=== PATIENT | female | born 1950 | race Two or more races ===

== ENCOUNTER → 2020-10-17 09:13 | Outpatient (CLI) | payer OTHER | END | disposition home or self-care (01) | LOC: LAB 09:13 | PROVIDERS: ATTEND Radiology Diagnostic Radiology | DX: N20.1 Calculus of ureter (principal); Z51.81 Encounter for therapeutic drug level monitoring ==

== ENCOUNTER 2020-10-17 09:54 | Outpatient (CLI) | payer OTHER | END 2020-10-17 10:08 | disposition home or self-care (01) | LOC: TOM 09:54 | PROVIDERS: ATTEND Urology | DX: N20.1 Calculus of ureter (principal) ==

== ENCOUNTER 2024-07-04 13:01 | Emergency (ER) | payer OTHER ==
[~2024-07-04] VITALS: Ht 149.9 cm; Wt 54.4 kg
[2024-07-04] MEDS ORDERED: CALCIUM500 M2 (13:18)
[2024-07-04] MEDS ORDERED: SIMVASTATIN5 MG (13:18)
[2024-07-04 16:34] LABS: HEMATOCRIT 41.6 % (36.0-45.00); HEMOGLOBIN 13.9 g/dL (12.0-15.00); MEAN CELL VOLUME 81.1 fL (80.00-100.00); MEAN CORPUSCULAR HEMOGLOBIN 27.2 pg (27.00-32.0); MEAN CORPUSCULAR HGB CONC 33.5 g/dl (32.0-36.0); RED BLOOD COUNT 5.13 M/uL (4.00-6.00); RED CELL DISTRIBUTION WIDTH 14.3 % (11.5-14.5)
[2024-07-04 16:41] LABS: PLATELET COUNT 120 K/uL (150-450)
[2024-07-04] MEDS ORDERED: 0.9 % SODIUM CHLORIDE 1,000 ML IV ONE (19:00)
[2024-07-04 19:57] LABS: ALBUMIN 3.6 gm/dL (3.4-5.0); BILIRUBIN TOTAL 0.46 mg/dL (0.3-1.2); CREATININE SERUM 0.76 mg/dL (0.55-1.02); GFR 75.02; GLOBULINA 3.5 G/DL (2.4-3.5); POTASSIUM 3.9 mEq/L (3.5-5.1); TOTAL PROTEIN 7.1 gm/dL (6.4-8.2)
== END 2024-07-04 21:48 | disposition home or self-care (01) ==
LOC: ER 13:03
PROVIDERS: General Practice; Preventive Medicine Public Health & General Preventive Medicine
DX: B34.9 Viral infection, unspecified (principal); R21 Rash and other nonspecific skin eruption; Z20.822 Contact with and (suspected) exposure to COVID-19
CPT/HCPCS: 36415; 96365; 96366; 99282; J7030

== ENCOUNTER 2024-11-23 08:48 | Outpatient (CLI) | payer OTHER ==
[~2024-11-23 08:48] MED LIST: CALCIUM500 M2; SIMVASTATIN5 MG
== END 2024-11-23 08:52 | disposition home or self-care (01) ==
LOC: SONOGRAMA 08:48
PROVIDERS: ATTEND Specialist
DX: K75.81 Nonalcoholic steatohepatitis (NASH) (principal)

== ENCOUNTER 2024-11-23 10:37 | Outpatient (CLI) | payer OTHER ==
[2024-11-23 11:47] LABS: ERYTHROCYTE SEDIMENTATION RATE 11 mm/hr (0-30)
[2024-11-23 13:03] LABS: MANUAL PLATELET COUNT 158
[2024-11-23 13:10] LABS: % SATURACION 21.8 % (15-50); ALT/SGPT 57.0 U/L (12-78); AST/SGOT 26.0 U/L (15-37); BILIRUBIN TOTAL 0.45 mg/dL (0.3-1.2); BILIRUBIN,CONJUGATED 0.1 mg/dL (0.0-0.2); FE 74.0 ug/dl (50-170)
== END 2024-11-23 10:40 | disposition home or self-care (01) ==
LOC: LAB 10:37
PROVIDERS: ATTEND Specialist
DX: M32.10 Systemic lupus erythematosus, organ or system involvement unspecified (principal); K75.81 Nonalcoholic steatohepatitis (NASH); D64.9 Anemia, unspecified; M35.3 Polymyalgia rheumatica